=== PATIENT | female | born 1995 | race Caucasian/White ===

== ENCOUNTER 2020-09-04 15:46 | Inpatient (IN) | payer BC, SELFPAY ==
[2020-09-04] VITALS (8 sets, daily range): BP systolic 107–139; BP diastolic 68–94; PULSE 82–109; TEMP 36.7; BMI 39.4
--- OUTSIDE RECORDS SUMMARY | 2020-09-04 15:51 | XMS_ITS ---
:1995 Author Care Team Providers Name Role Phone CHARLENE GOLDSMITH Primary Care Provider [phone] Allergies Code Code System Name Reaction Severity Status Onset NKDA ? Medications Name Status Start Date Stop Date ? ? famotidine Active ? Not available famotidine 20 mg tablet Active ? Not avai lable TAKE 2 TABLETS BY MOUTH TWICE A DAY famotidine 40 mg tablet Active ? Not avai lable TAKE 1 TABLET BY MOUTH TWICE A DAY ferrous sulfate 325 mg (65 mg iron) tablet Active ? Not available TK 1 T PO D omeprazole 40 mg capsule,delayed release Active ? Not available TK 1 C PO QD + DHA Completed ? 03/03/2020 Problems Name Status Onset Date Source ? Active 03/03/2020 ? Procedures Date Name Performed by ? 06/13/2019 Thumb Surgery Information not avai lable Notes: glomas tumor removed 03/13/2019 Dilation and Curettage Information not a vailable 03/10/2019 Dilation and Curettage Information not a vailable 10/13/2017 Extraction of [place] Tooth Information n ot available 10/13/2010 Tonsilectomy/adenoids Information not av ailable 05/01/2020 US, Obstetric, 2Nd or 3Rd [place] [address] ([facility] [address]) 05/01/2020 US, Obstetric, Transvaginal [place]
--- OUTSIDE RECORDS SUMMARY | 2020-09-04 15:52 | XMS_ITS | Encounter Summary ---
:1995 Author Care Team Providers Name Role Phone Tamera Marte Primary Care Provider [phone] Reason for Visit None recorded. Assessment and Plan 1. screening ? US, obstetric, follow-up Discussion Note: None recorded.Patient educational handouts: No information available. Plan of Care Reminders Provider Appointments None ? ? recorded. Lab None ? ? recorded. Referral None ? ? recorded. Procedures None ? ? recorded. Surgeries None ? ? recorded. Imaging US, 06/07/2020 [place] [facility], Follow-up Medications Name Start Date ? ? famotidine ? famotidine 20 mg tablet ? TAKE 2 TABLETS BY MOUTH TWICE A DAY famotidine 40 mg tablet ? TAKE 1 TABLET BY MOUTH TWICE A DAY ferrous sulfate 325 mg (65 mg iron) tablet ? TK 1 T PO D omeprazole 40 mg capsule,delayed release ? TK 1 C PO QD Medications Administered None recorded. Vitals None recorded. Results Lab Results None recorded. Allergies Code Code System Name Reaction Severity Onset NKDA ? ? ? Problems Name
--- OUTSIDE RECORDS SUMMARY | 2020-09-04 15:52 | XMS_ITS | Encounter Summary ---
:1995 Author Care Team Providers Name Role Phone Tamera Marte Primary Care Provider [phone] Reason for Visit OB visit Assessment and Plan Assessment Note Patient is ___weeks . Discu ssed plan. 1. Routine care Discussion Note: None recorded.Patient educational handouts: No information available. Plan of Care Reminders Provider Appointments None ? ? recorded. Lab None ? ? recorded. Referral None ? ? recorded. Procedures None ? ? recorded. Surgeries None ? ? recorded. Imaging None ? ? recorded. Medications Name Start Date ? ? famotidine [...] PO QD Medications Administered None recorded. Vitals Height Weight BMI Blood Pressure 5 ft 9 in 261 lbs 38.5 kg/m2 128/83 mm[Hg] Results Lab Results None recorded. Allergies Code Code System Name Reaction Severity Onset
--- OUTSIDE RECORDS SUMMARY | 2020-09-04 15:52 | XMS_ITS | Encounter Summary ---
:1995 Author Care Team Providers Name Role Phone Tamera Marte Primary Care Provider [phone] Reason for Visit None recorded. Assessment and Plan 1. Reduced movement ? non-stress test Discussion Note: None recorded.Patient educational handouts: No information available. Plan of Care Reminders Provider Appointments None ? ? recorded. Lab None ? ? recorded. Referral None ? ? recorded. Procedures None ? ? recorded. Surgeries None ? ? recorded. Imaging 08/18/2020 [place] Non-stress Test Medications Name Start Date ? ? famotidine [...]
--- OUTSIDE RECORDS SUMMARY | 2020-09-04 15:52 | XMS_ITS | Encounter Summary ---
:1995 Author Care Team Providers Name Role Phone Tamera Marte Primary Care Provider [phone] Reason for Visit OB visit OB [id number] EDC 09/10/2020 LMP 12/05/2019 Assessment and Plan Assessment Note Patient is _34__weeks . Dis cussed plan. 1. Routine care Discussion Note: None [...] BMI Blood Pressure 5 ft 9 in 266 lbs 39.3 kg/m2 123/88 mm[Hg] Results Lab Results None recorded. Allergies Cod
--- OUTSIDE RECORDS SUMMARY | 2020-09-04 15:52 | XMS_ITS | Encounter Summary ---
:1995 Author Care Team Providers Name Role Phone Tamera Marte Primary Care Provider [phone] Reason for Visit OB visit Assessment and [...] BMI Blood Pressure 5 ft 9 in 263 lbs 38.8 kg/m2 120/87 mm[Hg] Results Lab Results None recorded. Allergies Code Code System Name Reaction Severity Onset
--- OUTSIDE RECORDS SUMMARY | 2020-09-04 15:52 | XMS_ITS | Encounter Summary ---
:1995 Author Care Team Providers Name Role Phone Tamera Marte Primary Care Provider [phone] Reason for Visit OB visit OB [id number] EDC 09/10/2020 LMP 12/05/2019 Assessment and Plan Assessment Note Patient is _38__weeks . Dis cussed plan. 1. Routine care [...] ft 9 in 266 lbs 39.3 kg/m2 135/88 mm[Hg] Results Lab Results None recorded. Allergies Cod
--- OUTSIDE RECORDS SUMMARY | 2020-09-04 15:52 | XMS_ITS | Encounter Summary ---
:1995 Author Care Team Providers Name Role Phone Tamera Marte Primary Care Provider [phone] Reason for Visit None recorded. Assessment and Plan 1. Uterine size for dates discre pancy ? US, obstetric, follow-up Discussion Note: None recorded.Patient educational handouts: No information available. Plan of Care Reminders Provider Appointments None ? ? recorded. Lab None ? ? recorded. Referral None ? ? recorded. Procedures None ? ? recorded. Surgeries None ? ? recorded. Imaging US, 07/21/2020 [place] [facility], Follow-up Medications Name Start Date ? [...]
--- OUTSIDE RECORDS SUMMARY | 2020-09-04 15:52 | XMS_ITS | Encounter Summary ---
:1995 Author Care Team Providers Name Role Phone Tamear Marte Primary Care Provider [phone] Reason for Visit OB visit OB [id number] EDC 09/10/2020 LMP 12/05/2019 Assessment and Plan Assessment Note Patient is _30__weeks . Dis cussed plan. 1. Routine care [...] BMI Blood Pressure 5 ft 9 in 260 lbs 38.4 kg/m2 113/80 mm[Hg] Results Lab Results None recorded. Allergies Co
--- OUTSIDE RECORDS SUMMARY | 2020-09-04 15:52 | XMS_ITS | Encounter Summary ---
:1995 Author Care Team Providers Name Role Phone Tamera Marte Primary Care Provider [phone] Reason for Visit OB visit OB [id number] EDC 09/10/2020 LMP 12/05/2019 Assessment and Plan Assessment Note Patient is __37_weeks . Dis cussed plan. 1. Routine care [...] BMI Blood Pressure 5 ft 9 in 269 lbs 39.7 kg/m2 122/81 mm[Hg] Results Lab Results None recorded. Allergies Cod
--- OUTSIDE RECORDS SUMMARY | 2020-09-04 15:52 | XMS_ITS | Encounter Summary ---
:1995 Author Care Team Providers Name Role Phone Tamera Marte Primary Care Provider [phone] Reason for Visit OB visit OB [id number] EDC 09/10/2020 LMP 12/05/2019 Assessment and Plan Assessment Note Patient is _35__weeks . Dis cussed plan. 1. Routine care [...] ft 9 in 266 lbs 39.3 kg/m2 132/83 mm[Hg] Results Lab Results None recorded. Allergies Cod
[2020-09-04 16:32] LABS: Basophils Percent Auto 0.3 % (0.2-1.2); Eosinophils Absolute Auto 0.2 K/mm3 (0-0.3); Eosinophils Percent Auto 1.8 % (0-4.4); Hematocrit 33.9 % (37.0-47.0); Hemoglobin 10.8 g/dL (12.0-15.0); Immature Granulocyte Absolute 0.13 K/mm3 (0.00-0.031); Lymphocytes Percent Auto 22.3 % (18.3-44.2); Mean Corpuscular HGB Conc 31.9 g/dl (32-36); Mean Corpuscular Hemoglobin 27.6 pg (26-34); Mean Corpuscular Volume 86.7 fl (80-100); Mean Platelet Volume 11.3 fl (7.4-10.4); Monocytes Absolute Auto 0.9 K/mm3 (0.1-0.6); Monocytes Percent Auto 6.8 % (2.6-8.5); Neutrophils Absolute Auto 8.9 K/mm3 (1.3-6.7); Neutrophils Percent Auto 67.8 % (45.5-73.1); Platelet Count Result 229 k/mm3 (150-375); Red Blood Count 3.91 M/mm3 (4.2-5.4); Red Cell Distribution Width 14.4 % (11.5-14.5)
[2020-09-04] MEDS: DINOPROSTONE 10 MG VAG INSERT VAGINAL (16:39)
--- NOTE | 2020-09-04 17:26 | LDADM ---
This patient, Fiordaliza Paz, was admitted to Labor/Delivery/Recovery 107 on 09/04/20 at 15:46. Plans for labor, pain management and were discussed with patient. Patient/family oriented to hospital policies and general routines including ID bracelet, bed and alarms, visiting hours, pain management, procedures, bathroom and other care routines, personal items, smoking policy, room service/diet and guest tray routines, security routines, and visiting hours. Patient/Family are encouraged to report perceived risks to care and to ask questions if they do not understand what they are told or what they should do. See OBIX for further documentation.
[2020-09-05] VITALS (240 sets, daily range): BP systolic 90–134; BP diastolic 47–92; PULSE 25–122; TEMP 36.2–37.1; O2SAT 97–100
[2020-09-05] MEDS: LACTATED RINGERS 1,000 ML 125 ML IV CONT ×4 (05:19→20:35)
[2020-09-05] MEDS: OXYTOCIN 30 UNITS/NS 500 ML 30 UNITS/500 ML BAG 6 UNITS IV CONT (05:38)
--- NOTE | 2020-09-05 07:25 | WPDOBADMIT ---
Obstetrics - Admit Note Admission Note: record reviewed. No pertinent additions to the history and/or any subsequent changes in the physical findings that are not consistent with the expected course of the were found.39 weeks, EIL, SVE /-2, AROM moderate amount of clear odorless fluid Additions to the history and/or subsequent changes in the physical findings follow. None.
[2020-09-05 11:01] LABS: Rapid Plasma Reagin Non-Reactive (NonReactive)
--- NOTE | 2020-09-05 12:14 | WPDANESEPPF ---
Anes - Initial Pre Proc Eval Procedure: labor epidural Date/Time: 09/05/20 12:14 Surgeon: Stephanie Cortes MD Pre Op Diagnosis: labor pain Pre Op Diagnosis: IOL Patient Data Age: 24 Gender: F Height: 1.75 m Weight: 121 kg Last Vital Signs Temp 36.4 C 09/05/20 12:00 Pulse 73 09/05/20 12:13 BP 121/71 09/05/20 12:13 Pulse Ox 100 09/05/20 12:12 Allergies Allergy/AdvReac Type Severity Reaction Status Date / Time No Known Allergies Allergy Unverified 03/19/19 11:11 Home Medications Medication Instructions Recorded Confirmed Type famotidine 40 mg PO BID 08/11/20 09/04/20 History Laboratory Tests 09/04/20 09/04/20 09/04/20 16:25 16:25 16:25 WBC 13.0 K/mm3 H K/mm3 (4.5-10.0) RBC 3.91 M/mm3 L M/mm3 (4.2-5.4) Hgb 10.8 g/dL L g/dL (12.0-15.0) Hct 33.9 % L % (37.0-47.0) MCV 86.7 fl fl (80-100) MCH 27.6 pg pg (26-34) MCHC 31.9 g/dl L g/dl (32-36) RDW 14.4 % % (11.5-14.5) Plt Count 229 k/mm3 k/mm3 (150-375) MPV 11.3 fl H fl (7.4-10.4) Immature Gran % (Auto) 1.0 % H % (0-0.5) Neut % (Auto) 67.8 % % (45.5-73.1) Lymph % (Auto) 22.3 % % (18.3-44.2) [place] % (Auto) 6.8 % % (2.6-8.5) Eos % (Auto) 1.8 % % (0-4.4) Baso % (Auto) 0.3 % % (0.2-1.2) Lymph # (Auto) 2.90 K/mm3 K/mm3 (0.9-3.2) [place] # (Auto) 0.9 K/mm3 H K/mm3 (0.1-0.6) Eos # (Auto) 0.2 K/mm3 K/mm3 (0-0.3) Baso # (Auto) 0.0 K/mm3 K/mm3 (0.0-0.1) Abs Immat Gran (auto) 0.13 K/mm3 H K/mm3 (0.00-0.031) Absolute Neuts (auto) 8.9 K/mm3 H K/mm3 (1.3-6.7) Absolute Nucleated RBC 0.0 K/mm3 K/mm3 (0.0-0.012) Nucleated RBC % 0.0 % % (0.0-0.2) RPR Non-reactive (NonReactive) Blood Type A Positive Antibody Screen Negative Patient hx anesthesia problems: none Family hx anesthesia problems: none [facility] Past Medical History Medical History (Updated 09/05/20 @ 12:14 by Moi Mcneal DO) GERD (gastroesophageal reflux disease) Family History Family History (Updated 08/11/20 @ 13:32 by Alvarez Vazquez RN) Mother Diabetes mellitus Mother Parkinsons Social History Social History Smoking status: Never smoker Second hand tobacco smoke exposure: No Substance use: never Gender identity (if verbalized by the patient): Female Spiritual care concerns: No Anes - Eval Final PreProcedure Day of Procedure 09/05/20 12:14 Patient weight: obese ASA classification: II Anesthesia type and monitoring: regional epidural Informed Consent: The patient's anesthetic plan and its attendant risks and benefits were discussed with the patient/family/POA. Questions were solicited and answers provided to the satisfaction of the patient/family/POA.
[2020-09-05] MEDS: ONDANSETRON INJ 4 MG/2 ML VIAL IV PUSH (21:40)
[2020-09-06] VITALS (131 sets, daily range): BP systolic 88–142; BP diastolic 49–102; PULSE 73–143; RESP 12–20; TEMP 36.2–38.2; O2SAT 91–100
[2020-09-06] MEDS: AMPICILLIN 2 GM/NS 100 ML 2 GM/100 ML BAG IVPB (01:52)
--- NOTE | 2020-09-06 04:57 | PM.IMHP ---
H&P: HPI History of Present Illness Date/Time: 09/06/20 04:57 Chief complaint: IOL Narrative: Fiordaliza Paz is a 24 year old female presented for IOL, cervadil, AROM and pitocin. Pt is now febrile, antibiotics given, cervix is swelling. [facility] Past Medical History Medical History (Updated 09/05/20 @ 12:14 by Moi Mcneal DO) GERD (gastroesophageal reflux disease) Family History Family History (Updated 08/11/20 @ 13:32 by Alvarez Vazquez RN) Mother Diabetes mellitus Mother Parkinsons Social History Social History Smoking status: Never smoker Second hand tobacco smoke exposure: No Substance use: never Gender identity (if verbalized by the patient): Female Spiritual care concerns: No Meds Home Medications and Allergies Home Medications Medication Instructions Recorded Confirmed Type famotidine 40 mg PO BID 08/11/20 09/04/20 History Allergies Allergy/AdvReac Type Severity Reaction Status Date / Time No Known Allergies Allergy Unverified 03/19/19 11:11 Vital Signs Vital Signs - 24 hr 09/05/20 05:34 09/05/20 05:45 09/05/20 06:00 Temperature Pulse Rate 84 95 84 Blood Pressure 126/79 112/76 116/74 Pulse Oximetry 09/05/20 06:15 09/05/20 06:30 09/05/20 06:45 Temperature 36.3 C L Pulse Rate 83 84 Blood Pressure 118/78 120/82 Pulse Oximetry 09/05/20 07:00 09/05/20 07:15 09/05/20 07:17 Temperature Pulse Rate 80 80 72 Blood Pressure 123/80 117/92 H 114/84 Pulse Oximetry 09/05/20 07:25 09/05/20 07:30 09/05/20 08:00 Temperature 36.3 C L Pulse Rate 72 75 Blood Pressure 120/86 114/82 Pulse Oximetry 09/05/20 08:30 09/05/20 09:00 09/05/20 09:30 Temperature 36.2 C L Pulse Rate 68 76 78 Blood Pressure 113/81 119/88 109/77 Pulse Oximetry 09/05/20 10:00 09/05/20 10:30 09/05/20 11:00 Temperature Pulse Rate 87 67 74 Blood Pressure 123/82 117/75 116/78 Pulse Oximetry 09/05/20 11:42 09/05/20 11:47 09/05/20 11:52 Temperature Pulse Rate 72 Blood Pressure 123/80 Pulse Oximetry 100 100 100 09/05/20 11:57 09/05/20 11:58 09/05/20 12:00 Temperature 36.4 C Pulse Rate 86 83 Blood Pressure 129/92 H 134/86 Pulse Oximetry 100 09/05/20 12:02 09/05/20 12:03 09/05/20 12:06 Temperature Pulse Rate 97 89 Blood Pressure 128/66 107/64 Pulse Oximetry 100 09/05/20 12:07 09/05/20 12:09 09/05/20 12:10 Temperature Pulse Rate 86 78 Blood Pressure 107/73 105/80 Pulse Oximetry 100 09/05/20 12:12 09/05/20 12:13 09/05/20 12:15 Temperature Pulse Rate 73 75 Blood Pressure 121/71 114/75 Pulse Oximetry 100 09/05/20 12:17 09/05/20 12:18 09/05/20 12:20 Temperature Pulse Rate 68 88 Blood Pressure 118/58 L 122/68 Pulse Oximetry 100 09/05/20 12:22 09/05/20 12:23 09/05/20 12:25 Temperature Pulse Rate 77 77 Blood Pressure 119/55 L 118/79 Pulse Oximetry 100 09/05/20 12:27 09/05/20 12:28 09/05/20 12:30 Temperature 36.4 C Pulse Rate 76 74 Blood Pressure 120/75 116/74 Pulse Oximetry 100 09/05/20 12:32 09/05/20 12:33 09/05/20 12:35 Temperature Pulse Rate 78 77 Blood Pressure 112/78 115/75 Pulse Oximetry 100 09/05/20 12:37 09/05/20 12:38 09/05/20 12:40 Temperature Pulse Rate 80 70 Blood Pressure 119/73 115/79 Pulse Oximetry 100 09/05/20 12:42 09/05/20 12:43 09/05/20 12:45 Temperature Pulse Rate 69 78 Blood Pressure 118/73 121/66 Pulse Oximetry 100 09/05/20 12:47 09/05/20 12:48 09/05/20 12:50 Temperature Pulse Rate 81 75 Blood Pressure 121/72 122/70 Pulse Oximetry 100 09/05/20 12:52 09/05/20 12:53 09/05/20 12:55 Temperature Pulse Rate 80 77 Blood Pressure 118/71 118/72 Pulse Oximetry 100 09/05/20 12:57 09/05/20 12:58 09/05/20 13:00 Temperature Pulse Rate 83 82 Blood Pressure 121/79 117/84 Pulse Oximetry 99 09/05/20 13:02 09/05/20 13:03 09/05/20 13:05 T
--- NOTE | 2020-09-06 04:59 | PM.IMHP ---
H&P: HPI History of Present Illness Date/Time: 09/06/20 04:59 Chief complaint: IOL Narrative: Fiordaliza Paz is a 24 year old female [facility] Past Medical History Medical History (Updated 09/06/20 @ 05:00 by Beatriz Limon CNM) GERD (gastroesophageal reflux disease) Family History Family History (Updated 08/11/20 @ 13:32 by Alvarez Vazquez RN) Mother Diabetes mellitus Mother Parkinsons Social History Social History Smoking status: Never smoker Second hand tobacco smoke exposure: No Substance use: never Gender identity (if verbalized by the patient): Female Spiritual care concerns: No Meds Home Medications and Allergies Home Medications Medication Instructions Recorded Confirmed Type famotidine 40 mg PO BID 08/11/20 09/04/20 History Allergies Allergy/AdvReac Type Severity Reaction Status Date / Time No Known Allergies Allergy Unverified 03/19/19 11:11 Vital Signs Vital Signs - 24 hr 09/05/20 05:34 09/05/20 05:45 09/05/20 06:00 Temperature Pulse Rate 84 95 84 Blood Pressure 126/79 112/76 116/74 Pulse Oximetry 09/05/20 06:15 09/05/20 06:30 09/05/20 06:45 Temperature 36.3 C L Pulse Rate 83 84 Blood Pressure 118/78 120/82 Pulse Oximetry 09/05/20 07:00 09/05/20 07:15 09/05/20 07:17 Temperature Pulse Rate 80 80 72 Blood Pressure 123/80 117/92 H 114/84 Pulse Oximetry 09/05/20 07:25 09/05/20 07:30 09/05/20 08:00 Temperature 36.3 C L Pulse Rate 72 75 Blood Pressure 120/86 114/82 Pulse Oximetry 09/05/20 08:30 09/05/20 09:00 09/05/20 09:30 Temperature 36.2 C L Pulse Rate 68 76 78 Blood Pressure 113/81 119/88 109/77 Pulse Oximetry 09/05/20 10:00 09/05/20 10:30 09/05/20 11:00 Temperature Pulse Rate 87 67 74 Blood Pressure 123/82 117/75 116/78 Pulse Oximetry 09/05/20 11:42 09/05/20 11:47 09/05/20 11:52 Temperature Pulse Rate 72 Blood Pressure 123/80 Pulse Oximetry 100 100 100 09/05/20 11:57 09/05/20 11:58 09/05/20 12:00 Temperature 36.4 C Pulse Rate 86 83 Blood Pressure 129/92 H 134/86 Pulse Oximetry 100 09/05/20 12:02 09/05/20 12:03 09/05/20 12:06 Temperature Pulse Rate 97 89 Blood Pressure 128/66 107/64 Pulse Oximetry 100 09/05/20 12:07 09/05/20 12:09 09/05/20 12:10 Temperature Pulse Rate 86 78 Blood Pressure 107/73 105/80 Pulse Oximetry 100 09/05/20 12:12 09/05/20 12:13 09/05/20 12:15 Temperature Pulse Rate 73 75 Blood Pressure 121/71 114/75 Pulse Oximetry 100 09/05/20 12:17 09/05/20 12:18 09/05/20 12:20 Temperature Pulse Rate 68 88 Blood Pressure 118/58 L 122/68 Pulse Oximetry 100 09/05/20 12:22 09/05/20 12:23 09/05/20 12:25 Temperature Pulse Rate 77 77 Blood Pressure 119/55 L 118/79 Pulse Oximetry 100 09/05/20 12:27 09/05/20 12:28 09/05/20 12:30 Temperature 36.4 C Pulse Rate 76 74 Blood Pressure 120/75 116/74 Pulse Oximetry 100 09/05/20 12:32 09/05/20 12:33 09/05/20 12:35 Temperature Pulse Rate 78 77 Blood Pressure 112/78 115/75 Pulse Oximetry 100 09/05/20 12:37 09/05/20 12:38 09/05/20 12:40 Temperature Pulse Rate 80 70 Blood Pressure 119/73 115/79 Pulse Oximetry 100 09/05/20 12:42 09/05/20 12:43 09/05/20 12:45 Temperature Pulse Rate 69 78 Blood Pressure 118/73 121/66 Pulse Oximetry 100 09/05/20 12:47 09/05/20 12:48 09/05/20 12:50 Temperature Pulse Rate 81 75 Blood Pressure 121/72 122/70 Pulse Oximetry 100 09/05/20 12:52 09/05/20 12:53 09/05/20 12:55 Temperature Pulse Rate 80 77 Blood Pressure 118/71 118/72 Pulse Oximetry 100 09/05/20 12:57 09/05/20 12:58 09/05/20 13:00 Temperature Pulse Rate 83 82 Blood Pressure 121/79 117/84 Pulse Oximetry 99 09/05/20 13:02 09/05/20 13:03 09/05/20 13:05 Temperature Pulse Rate 83 82 Blood Pressure 118/74 121/72 Pulse Oximetry 99 09/05/20 13:07
--- NOTE | 2020-09-06 05:37 | PM.IMHP ---
H&P: HPI History of Present Illness Date/Time: 09/06/20 05:37 Chief complaint: IOL Narrative: Fiordaliza Paz is a 24 year old female [facility] Past Medical History Medical History (Updated 09/06/20 @ 05:38 by Beatriz Limon CNM) Afebrile (~09/06/20) GERD (gastroesophageal reflux disease) Family History Family History (Updated 08/11/20 @ 13:32 by Alvarez Vazquez RN) Mother Diabetes mellitus Mother Parkinsons Social History Social History Smoking status: Never smoker Second hand tobacco smoke exposure: No Substance use: never Gender identity (if verbalized by the patient): Female Spiritual care concerns: No Meds Home Medications and Allergies Home Medications Medication Instructions Recorded Confirmed Type famotidine 40 mg PO BID 08/11/20 09/04/20 History Allergies Allergy/AdvReac Type Severity Reaction Status Date / Time No Known Allergies Allergy Unverified 03/19/19 11:11 Vital Signs Vital Signs - 24 hr 09/05/20 05:45 09/05/20 06:00 09/05/20 06:15 Temperature 36.3 C L Pulse Rate 95 84 Blood Pressure 112/76 116/74 Pulse Oximetry 09/05/20 06:30 09/05/20 06:45 09/05/20 07:00 Temperature Pulse Rate 83 84 80 Blood Pressure 118/78 120/82 123/80 Pulse Oximetry 09/05/20 07:15 09/05/20 07:17 09/05/20 07:25 Temperature 36.3 C L Pulse Rate 80 72 Blood Pressure 117/92 H 114/84 Pulse Oximetry 09/05/20 07:30 09/05/20 08:00 09/05/20 08:30 Temperature Pulse Rate 72 75 68 Blood Pressure 120/86 114/82 113/81 Pulse Oximetry 09/05/20 09:00 09/05/20 09:30 09/05/20 10:00 Temperature 36.2 C L Pulse Rate 76 78 87 Blood Pressure 119/88 109/77 123/82 Pulse Oximetry 09/05/20 10:30 09/05/20 11:00 09/05/20 11:42 Temperature Pulse Rate 67 74 72 Blood Pressure 117/75 116/78 123/80 Pulse Oximetry 100 09/05/20 11:47 09/05/20 11:52 09/05/20 11:57 Temperature Pulse Rate Blood Pressure Pulse Oximetry 100 100 100 09/05/20 11:58 09/05/20 12:00 09/05/20 12:02 Temperature 36.4 C Pulse Rate 86 83 Blood Pressure 129/92 H 134/86 Pulse Oximetry 100 09/05/20 12:03 09/05/20 12:06 09/05/20 12:07 Temperature Pulse Rate 97 89 Blood Pressure 128/66 107/64 Pulse Oximetry 100 09/05/20 12:09 09/05/20 12:10 09/05/20 12:12 Temperature Pulse Rate 86 78 Blood Pressure 107/73 105/80 Pulse Oximetry 100 09/05/20 12:13 09/05/20 12:15 09/05/20 12:17 Temperature Pulse Rate 73 75 Blood Pressure 121/71 114/75 Pulse Oximetry 100 09/05/20 12:18 09/05/20 12:20 09/05/20 12:22 Temperature Pulse Rate 68 88 Blood Pressure 118/58 L 122/68 Pulse Oximetry 100 09/05/20 12:23 09/05/20 12:25 09/05/20 12:27 Temperature Pulse Rate 77 77 Blood Pressure 119/55 L 118/79 Pulse Oximetry 100 09/05/20 12:28 09/05/20 12:30 09/05/20 12:32 Temperature 36.4 C Pulse Rate 76 74 Blood Pressure 120/75 116/74 Pulse Oximetry 100 09/05/20 12:33 09/05/20 12:35 09/05/20 12:37 Temperature Pulse Rate 78 77 Blood Pressure 112/78 115/75 Pulse Oximetry 100 09/05/20 12:38 09/05/20 12:40 09/05/20 12:42 Temperature Pulse Rate 80 70 Blood Pressure 119/73 115/79 Pulse Oximetry 100 09/05/20 12:43 09/05/20 12:45 09/05/20 12:47 Temperature Pulse Rate 69 78 Blood Pressure 118/73 121/66 Pulse Oximetry 100 09/05/20 12:48 09/05/20 12:50 09/05/20 12:52 Temperature Pulse Rate 81 75 Blood Pressure 121/72 122/70 Pulse Oximetry 100 09/05/20 12:53 09/05/20 12:55 09/05/20 12:57 Temperature Pulse Rate 80 77 Blood Pressure 118/71 118/72 Pulse Oximetry 99 09/05/20 12:58 09/05/20 13:00 09/05/20 13:02 Temperature Pulse Rate 83 82 Blood Pressure 121/79 117/84 Pulse Oximetry 99 09/05/20 13:03 09/05/20 13:05 09/05/20 13:07 Temperature Pulse Rate 83 82 Blood Pressure 118/74 121/72 Pulse Oximetry 98
--- NOTE | 2020-09-06 05:38 | PM.IMHP ---
H&P: HPI History of Present Illness Date/Time: 09/06/20 05:38 Chief complaint: IOL Narrative: Fiordaliza Paz is a 24 year old female 1 at 39 weeks gestation who presented for induction of labor. Post failed to progress beyond 9 cm dilated. She denies any nausea, vomiting, fever, chills. She denies any shortness of breath or chest pain. She denies any headache or blurry vision. Review of Systems Constitutional: Constitutional: Reports no additional constitutional complaints, Denies fatigue, Denies headache(s), Denies lethargy and Denies weakness Eyes: Eyes: Reports no additional eye complaints, Denies blurry vision and Denies photophobia ENT: Reports as per HPI, Denies headache(s) and Denies neck pain Cardiovascular: Cardiovascular: Denies chest pain, Denies diaphoresis, Denies leg edema, Denies palpitations and Denies dyspnea Respiratory: Respiratory: Denies hemoptysis, Denies dyspnea and Denies wheezing Gastrointestinal: Gastrointestinal: Denies abdominal pain, Denies melena, Denies bloating, Denies hematochezia, Denies nausea and Denies vomiting Genitourinary: Genitourinary: Reports no additional female genitourinary complaints Musculoskeletal: Musculoskeletal: Denies joint swelling, Denies neck pain, Denies numbness and Denies stiffness Neurologic: Denies Abnormal speech present, Denies confusion, Denies headache(s), Denies numbness and Denies weakness Psychiatric: Psychiatric: Denies anxiety, Denies confusion, Denies depression, Denies homicidal ideation and Denies suicidal ideation Endocrine: Endocrine: Denies fatigue and Denies palpitations Allergic/Immunologic: Allergic/Immunologic: Denies wheezing PMFSH Past Medical History Medical History (Updated 09/06/20 @ 05:38 by Beatriz Limon CNM) Afebrile (~09/06/20) GERD (gastroesophageal reflux disease) Family History Family History (Updated 08/11/20 @ 13:32 by Alvarez Vazquez RN) Mother Diabetes mellitus Mother Parkinsons Social History Social History Smoking status: Never smoker Second hand tobacco smoke exposure: No Substance use: never Gender identity (if verbalized by the patient): Female Spiritual care concerns: No Meds Home Medications and Allergies Home Medications Medication Instructions Recorded Confirmed Type famotidine 40 mg PO BID 08/11/20 09/04/20 History Allergies Allergy/AdvReac Type Severity Reaction Status Date / Time No Known Allergies Allergy Unverified 03/19/19 11:11 Vital Signs Vital Signs - 24 hr 09/05/20 05:45 09/05/20 06:00 09/05/20 06:15 Temperature 97.4 F L Pulse Rate 95 84 Blood Pressure 112/76 116/74 Pulse Oximetry 09/05/20 06:30 09/05/20 06:45 09/05/20 07:00 Temperature Pulse Rate 83 84 80 Blood Pressure 118/78 120/82 123/80 Pulse Oximetry 09/05/20 07:15 09/05/20 07:17 09/05/20 07:25 Temperature 97.4 F L Pulse Rate 80 72 Blood Pressure 117/92 H 114/84 Pulse Oximetry 09/05/20 07:30 09/05/20 08:00 09/05/20 08:30 Temperature Pulse Rate 72 75 68 Blood Pressure 120/86 114/82 113/81 Pulse Oximetry 09/05/20 09:00 09/05/20 09:30 09/05/20 10:00 Temperature 97.1 F L Pulse Rate 76 78 87 Blood Pressure 119/88 109/77 123/82 Pulse Oximetry 09/05/20 10:30 09/05/20 11:00 09/05/20 11:42 Temperature Pulse Rate 67 74 72 Blood Pressure 117/75 116/78 123/80 Pulse Oximetry 100 09/05/20 11:47 09/05/20 11:52 09/05/20 11:57 Temperature Pulse Rate Blood Pressure Pulse Oximetry 100 100 100 09/05/20 11:58 09/05/20 12:00 09/05/20 12:02 Temperature 97.6 F Pulse Rate 86 83 Blood Pressure 129/92 H 134/86 Pulse Oximetry 100 09/05/20 12:03 09/05/20 12:06 09/05/20 12:07 Temperature Pulse Rate 97 89 Blood Pressure 128/66 107/64 Pulse Oximetry 100 09/05/20 12:09 09/05/20 12:10 09/05/20 12:12 Temperature Pulse Rate 86 78 Blood Pressure 107/73 105/80 Pulse Oximetry 100
[2020-09-06] MEDS: ceFAZolin 3 GM/D5W 100 ML 100 ML IVPB (06:15)
--- NOTE | 2020-09-06 07:04 | P.OP_ITS ---
Procedure Note - Detailed Date of procedure: 09/06/20 Pre-op diagnosis: IOL Failure to progress Post-op diagnosis: same (malposition of head) Procedure performed: low-transverse delivery Description of procedure: The patient was taken the operating room. She was prepped and draped in the dorsal supine position with leftward tilt after induction of spinal anesthetic. When anesthesia was found to be adequate a low- transverse skin incision was made and carried down to the level the fascia with the knife. The fascial incision was made at the midline with a scalpel. The fascial incision was extended laterally with Garg scissors. The fascia was tented upward superior and inferior with Karen clamps. The rectus muscles were dissected off bluntly. The rectus muscles at the midline. The preperitoneal fat was dissected bluntly at the superior aspect of the separate the rectus muscles. The peritoneal cavity was entered bluntly in the same area. The peritoneal incision was extended superior and inferior with good visualization of bladder. Bladder blade was inserted. A low-transverse incision was made on the uterus with the scalpel. It was carried down the level of the amniotic cavity with a knife. The amniotic cavity bluntly. The uterine incision was made laterally with blunt traction. The infant was delivered. The cord was clamped and cut. The was handed off to waiting pediatric staff. Cord bloods were obtained. The placenta was removed manually. The uterus was exteriorized. Uterus cleared of all clots and debris. Uterus closed in 0 Vicryl in a running locked fashion. An imbricating layer of 0 Vicryl was also placed on the to bolster the closure. The uterus was returned to the abdomen. The gutters were cleared of all clots and debris. The fascia was closed 0 Vicryl in a running fashion. Subcutaneous tissue was irrigated and bleeding areas were cauterized. The skin was closed with subcuticular absorbable ajith. The incision was covered with derma nichole. The patient tolerated the procedure well. She was taken recovery room stable condition. Sponge, lap, needle counts were correct x2. Anesthesia: spinal Surgeon: Stephanie Cortes MD Drains: No Packing: No Pathology: none sent Complications: No immediate complications Condition: stable Disposition: floor Findings: Normal maternal anatomy. Average size with normal Apgars. ROP head
[2020-09-06] MEDS: LACTATED RINGERS 1,000 ML 125 ML IV CONT (08:43)
--- NOTE | 2020-09-06 09:40 | OBPPTRN ---
Patient transferred to post room # 292 via stretcher. Support person present. Oriented to unit, room, information board, rooming in, admission packet and security measures. Patient verbalizes understanding.
[2020-09-06] MEDS: HYDROcodone/acetaminophen (*CRX) 5-325 MG TABLET 1 TAB (13:15)
[2020-09-06] MEDS: IBUPROFEN 600 MG TABLET (13:15)
[2020-09-06] MEDS: DOCUSATE SODIUM 100 MG CAPSULE PO (19:33)
[2020-09-06] MEDS: HYDROcodone/acetaminophen (*CRX) 5-325 MG TABLET 1 TAB PO (19:33)
[2020-09-06] MEDS: IBUPROFEN 600 MG TABLET PO (19:34)
[2020-09-07 04:35] VITALS: BP 118/70; PULSE 80; RESP 15; TEMP 36.7
[2020-09-07 06:07] LABS: Basophils Absolute Auto 0.1 K/mm3 (0.0-0.1); Basophils Percent Auto 0.4 % (0.2-1.2); Eosinophils Absolute Auto 0.3 K/mm3 (0-0.3); Eosinophils Percent Auto 1.4 % (0-4.4); Hematocrit 30.3 % (37.0-47.0); Hemoglobin 9.5 g/dL (12.0-15.0); Immature Granulocyte Absolute 0.16 K/mm3 (0.00-0.031); Immature Granulocyte Percent A 0.8 % (0-0.5); Lymphocytes Percent Auto 15.6 % (18.3-44.2); Mean Corpuscular HGB Conc 31.4 g/dl (32-36); Mean Corpuscular Hemoglobin 27.5 pg (26-34); Mean Corpuscular Volume 87.8 fl (80-100); Mean Platelet Volume 11.5 fl (7.4-10.4); Monocytes Absolute Auto 1.6 K/mm3 (0.1-0.6); Monocytes Percent Auto 8.2 % (2.6-8.5); Neutrophils Absolute Auto 14.6 K/mm3 (1.3-6.7); Neutrophils Percent Auto 73.6 % (45.5-73.1); Platelet Count Result 200 k/mm3 (150-375); Red Blood Count 3.45 M/mm3 (4.2-5.4); Red Cell Distribution Width 14.6 % (11.5-14.5); White Blood Count 19.8 K/mm3 (4.5-10.0)
[2020-09-07] MEDS: POLYSACCHARIDE IRON COMPLEX 150 MG CAPSULE PO ×2 (07:09→16:39)
[2020-09-07] MEDS: SIMETHICONE 80 MG TAB.CHEW PO (07:10)
[2020-09-07] MEDS: DOCUSATE SODIUM 100 MG CAPSULE PO ×2 (07:10→16:39)
[2020-09-07] MEDS: HYDROcodone/acetaminophen (*CRX) 5-325 MG TABLET 1 TAB PO ×4 (07:10→20:56)
[2020-09-07] MEDS: MULTIVIT/MIN/PREN/FOL AC/IRON TABLET 1 TAB PO (07:10)
[2020-09-07] MEDS: IBUPROFEN 600 MG TABLET PO ×3 (07:11→20:56)
[2020-09-07 07:25] VITALS: BP 116/82; PULSE 90; RESP 18; TEMP 36.6; O2SAT 100
--- NOTE | 2020-09-07 10:50 | PM.OBPNVD ---
OB - PN: Subj Subjective Date/time seen: 09/07/20 10:50 Patient comments: no complaints baby status: doing well OB - PN: Obj Data Labs CBC & Chem 7: 09/07/20 04:42 Labs: Laboratory Results - last 24 hr 09/07/20 04:42 WBC 19.8 H RBC 3.45 L Hgb 9.5 L Hct 30.3 L MCV 87.8 MCH 27.5 MCHC 31.4 L RDW 14.6 H Plt Count 200 MPV 11.5 H Immature Gran % (Auto) 0.8 H Neut % (Auto) 73.6 H Lymph % (Auto) 15.6 L [place] % (Auto) 8.2 Eos % (Auto) 1.4 Baso % (Auto) 0.4 Lymph # (Auto) 3.10 [place] # (Auto) 1.6 H Eos # (Auto) 0.3 Baso # (Auto) 0.1 Abs Immat Gran (auto) 0.16 H Absolute Neuts (auto) 14.6 H Absolute Nucleated RBC 0.0 Nucleated RBC % 0.0 OB - PN A/P Plan day: 1 Plan: routine care Time Spent With Patient Time: Total time spent is greater than 50% in coordination of care (as documented) at patient's floor/unit and/or counseling patient: Review of Systems Review of Systems: All systems reviewed & are unremarkable except as noted in HPI and below Constitutional: Constitutional: Reports as per HPI Exam Const: General: cooperative Limitations: no limitations
--- NOTE | 2020-09-07 11:16 | WPDANLDPN2 ---
Anes-Prog Note L&D Date/Time: 09/07/20 11:16 Comfortable throughout: labor and section Neuraxial method: spinal Epidural/Spinal procedure site: clean & non-tender Neuro status: Neuro function grossly intact. Cardiovascular status: normal Respiratory status: normal Airway patency: baseline Mental status: baseline Post-Op hydration status: normal Vital Signs: Last Vital Signs Temp 36.6 C 09/07/20 07:25 Pulse 90 09/07/20 07:25 Resp 18 09/07/20 07:25 BP 116/82 09/07/20 07:25 Pulse Ox 100 09/07/20 07:25 Pain score (VAS): 10/22 I/O: Intake & Output 09/06/20 09/07/20 09/07/20 23:59 07:59 15:59 Intake Total 500 1500 Output Total 275 1400 Balance 225 100 Post-procedural complaints: none Patient feedback: Patient satisfied with anesthetic care.
--- NOTE | 2020-09-07 11:17 | WPDANLDNPN2 ---
Anes-Prog Note L&D-Neuraxial Date/Time: 09/07/20 11:17 Neuraxial medications: intrathecal PF morphine Opiod-related complaints: none Patient feedback: Patient satisfied with post-operative pain management.
[2020-09-07 20:45] VITALS: BP 110/78; PULSE 79; RESP 18; TEMP 36.5; O2SAT 99
[2020-09-08] MEDS: IBUPROFEN 600 MG TABLET PO ×2 (04:12→09:53)
[2020-09-08] MEDS: HYDROcodone/acetaminophen (*CRX) 5-325 MG TABLET 1 TAB PO ×2 (04:13→09:54)
[2020-09-08 08:30] VITALS: BP 127/83; PULSE 81; RESP 18; TEMP 36.4; O2SAT 99
--- NOTE | 2020-09-08 09:11 | PM.OBPNVD ---
OB - PN: Subj Subjective Date/time seen: 09/08/20 09:11 Patient comments: no complaints, pain well controlled, incisional pain, tolerating diet and flatus present OB - PN: Obj Data Labs CBC & Chem 7: 09/07/20 04:42 OB - PN A/P Plan day: 2 Plan: routine care Comments: POD#2 LTCS - no problems, to d/c Time Spent With Patient Time: Total time spent is greater than 50% in coordination of care (as documented) at patient's floor/unit and/or counseling patient: Exam Const: General: comfortable, no acute distress and alert Resp: Effort & Inspection: normal respiratory effort Auscultation: no crackles, no rales and no rhonchi Cardio: Rate: regular rate Heart sounds: no click, no murmurs and no rubs GI: Inspection: non-distended GI Palp: No Tenderness to palpation present (GI) Auscultation: normal bowel sounds Other: Incision - CDI Extrem: General: normal to inspection, no pedal edema and no calf tenderness
--- NOTE | 2020-09-08 09:12 | PM.OBDSVD ---
DS: Admitting Diagnosis Admitting Diagnosis Admitting Diagnosis: IOL DS: Discharge Diagnosis Discharge Diagnosis (1) delivery delivered: Code(s): O82 - Encounter for delivery without indication Status: Acute OB - DS: Summary OB Procedures : None OB Procedures Intrapartum: OB Procedures: : None Peripartum Data Delivery Method: Section Procedures: Procedures Operation Date: 09/06/20 05:30 Actual Procedures Side Surgeon p Section Bilateral Stephanie Cortes MD Time Spent with Patient Time attestation: Total time spent providing and/or coordinating discharge services: Discharge Plan Discharge Discharging Clinician: Stephanie Cortes Patient Disposition: Home, Self-Care Activity: pelvic rest Diet: regular Patient Instructions: Antibiotic Form Stand Alone Forms: General Discharge Information Follow-up/Referrals: Stephanie Cortes MD [Physician] - Discharge Medications: New hydrocodone-acetaminophen 5-325 mg tablet 1 - 2 tablet PO Q4H PRN (Reason: pain) Qty: 25 RF: 0 Continued famotidine 40 mg Tablet 40 mg PO BID RF: 0 Date of admission: 09/04/20 15:46 Primary Care Provider: JerryTamera Admitting Provider: Stephanie Cortes Attending physician on admission: Stephanie Cortes Condition: Stable
[2020-09-08] MEDS: MULTIVIT/MIN/PREN/FOL AC/IRON TABLET 1 TAB PO (09:53)
[2020-09-08] MEDS: SIMETHICONE 80 MG TAB.CHEW PO (09:53)
[2020-09-08] MEDS: DOCUSATE SODIUM 100 MG CAPSULE PO (09:53)
[2020-09-08] MEDS: POLYSACCHARIDE IRON COMPLEX 150 MG CAPSULE PO (09:54)
[2020-09-11 09:19] VITALS: BP 132/88; PULSE 74; RESP 20; TEMP 36.8; O2SAT 100
== END 2020-09-08 11:00 | disposition home or self-care (01) | DRG 787 ==
LOC: ANHLDR 15:49 → ANHOB2 09-06 09:49
PROVIDERS: Admitting Provider Obstetrics & Gynecology; PCP Family Medicine; Visit Provider Obstetrics & Gynecology
PROC: 10D00Z1 Extraction of Products of Conception, Low, Open Approach (ICD-10-PCS; CPT 59514; principal; 2020-09-06 05:30)
DX: O99.62 Diseases of the digestive system complicating childbirth (principal); O75.2 Pyrexia during labor, not elsewhere classified; Z37.0 Single live birth; Z3A.39 39 weeks gestation of pregnancy; K21.9 Gastro-esophageal reflux disease without esophagitis; O99.214 Obesity complicating childbirth; E66.9 Obesity, unspecified; O36.8330 Maternal care for abnormalities of the fetal heart rate or rhythm, third trimester, not applicable or unspecified; O63.1 Prolonged second stage (of labor); O69.82X0 Labor and delivery complicated by other cord entanglement, without compression, not applicable or unspecified
CPT/HCPCS: 36415; 85025; 86592; 86850; 86900; 86901; A9270; J0131; J0290; J0690; J2274; J2370; J2405; J2590; J2704; J2795; J7120